=== PATIENT | male | born 1970 | race Caucasian/White ===

== ENCOUNTER 2016-06-26 17:11 | Observation (INO) | payer OTHER ==
[~2016-06-26] VITALS: Ht 175.3 cm; Wt 83.5 kg
[2016-06-26 17:59] LABS: HEMATOCRIT 42.1 % (38.0-50.0); MCH 29.1 PG (29.0-34.0); MCHC 34.4 G/DL (30.0-36.0); MCV 84.5 FL (86-99); RBC DIS.WIDTH-SD 40.1 % (39-53); RED BLOOD COUNT 4.98 M/uL (4.00-5.50); WHITE BLOOD COUNT 9.4 K/uL (4.1-10.2)
[2016-06-26 18:11] LABS: CHLORIDE 106 mEq/L (99-109); POTASSIUM 4.1 mEq/L (3.7-5.4); SODIUM 140 mEq/L (136-147)
[2016-06-26 18:12] LABS: GLUCOSE 101 mg/dL (70-99)
[2016-06-26 18:14] LABS: ANION GAP 11 MEQ/L (2-14)
[2016-06-26 18:16] LABS: GFR ESTIMATE (CALCULATED) 58 mL/min/
[2016-06-26 18:17] LABS: UREA NITROGEN (BUN) 16 mg/dL (9-23)
[2016-06-26 18:23] LABS: TROP-I INTERPRETATION NEGATIVE; TROPONIN-I 0.02 ng/mL (0.0-0.30)
[2016-06-26 18:47] LABS: MEAN PLAT.VOLUME 11.2 uM^3 (9.0-12.4); PLAT.SUFFICIENCY ADEQUATE; PLATELET COUNT 227 K/uL (156-360)
[2016-06-27 02:29] LABS: D-DIMER ELISA < 0.15 mg/L FEU (< 0.57)
[2016-06-27 02:48] VITALS: BP 134/77
[2016-06-27 08:45] VITALS: BP 124/74
[2016-06-27 08:51] LABS: TROP-I INTERPRETATION NEGATIVE; TROPONIN-I < 0.01 ng/mL (0.0-0.30)
[2016-06-27 11:38] LABS: ANION GAP 9 MEQ/L (2-14); CHLORIDE 105 MEQ/L (99-109); GFR ESTIMATE (CALCULATED) > 59 mL/min/; GLUCOSE 135 mg/dL (70-99); SAMPLE HEMOLYSIS CHECK 0; SAMPLE ICTERIC CHECK 0; SAMPLE LIPEMIA CHECK 0; SODIUM 138 MEQ/L (136-147); UREA NITROGEN (BUN) 16 mg/dL (9-23)
[2016-06-27 11:39] LABS: POTASSIUM 5.1 MEQ/L (3.7-5.4)
[2016-06-27 11:59] VITALS: BP 134/70
[2016-06-27 12:07] LABS: ANION GAP 9 MEQ/L (2-14); CHLORIDE 106 MEQ/L (99-109); GFR ESTIMATE (CALCULATED) > 59 mL/min/; GLUCOSE 116 mg/dL (70-99); POTASSIUM 4.3 MEQ/L (3.7-5.4); SAMPLE HEMOLYSIS CHECK 0; SAMPLE ICTERIC CHECK 0; SAMPLE LIPEMIA CHECK 0; SODIUM 139 MEQ/L (136-147); UREA NITROGEN (BUN) 15 mg/dL (9-23)
[2016-06-27 12:12] LABS: TROP-I INTERPRETATION NEGATIVE; TROPONIN-I < 0.01 ng/mL (0.0-0.30)
== END 2016-06-27 13:53 | disposition home or self-care (01) ==
LOC: EME 17:11 → EDOF 06-27 01:39 → 5WEST 06-27 02:33
PROVIDERS: Hospitalist; Physician Assistant Medical
DX: R07.89 Other chest pain (principal); I34.1 Nonrheumatic mitral (valve) prolapse; I34.0 Nonrheumatic mitral (valve) insufficiency; Z87.891 Personal history of nicotine dependence; I10 Essential (primary) hypertension; F32.9 Major depressive disorder, single episode, unspecified
CPT/HCPCS: 71020; 80048; 80048 91; 84484; 85027; 85379; 93005; 99281; 99285; G0378

== ENCOUNTER 2016-06-29 07:28 | Day surgery (SDC) | payer OTHER ==
[~2016-06-29] VITALS: Ht 175.3 cm; Wt 81.7 kg
[2016-06-29] MEDS ORDERED: ASPIRIN325 MG PO (07:55)
== END 2016-06-29 13:48 | disposition home or self-care (01) ==
LOC: CATH 07:28
DX: I34.0 Nonrheumatic mitral (valve) insufficiency (principal); I77.819 Aortic ectasia, unspecified site; R06.83 Snoring; F17.220 Nicotine dependence, chewing tobacco, uncomplicated; Z82.49 Family history of ischemic heart disease and other diseases of the circulatory system
CPT/HCPCS: C1769; C1887; C1894; J1200; J1644; J2250; J3010

== ENCOUNTER → 2016-07-07 | Outpatient (CLI) | payer OTHER ==
[~2016-07-07] MED LIST: ASPIRIN325 MG PO
== END | disposition home or self-care (01) ==
LOC: RES 13:37
DX: J98.8 Other specified respiratory disorders (principal); R94.2 Abnormal results of pulmonary function studies; G47.30 Sleep apnea, unspecified
CPT/HCPCS: 94060; 94726; 94729

== ENCOUNTER → 2016-08-31 | Outpatient (CLI) | payer OTHER | END | disposition home or self-care (01) | LOC: NUC 10:30 | DX: M19.072 Primary osteoarthritis, left ankle and foot (principal); M19.071 Primary osteoarthritis, right ankle and foot | CPT/HCPCS: 78306; A9503 ==